=== PATIENT | female | born 1970 | race African-American/Black ===

== ENCOUNTER 2016-12-11 15:26 | Observation (INO) | payer BC ==
[~2016-12-11] VITALS: Ht 165.1 cm; Wt 82.3 kg
[~2016-12-11 15:26] MED LIST: DIVA250T4 PO; OMEP10CA3 PO; RANI15SY PO; [UNRECOGNIZED DRUG - CODE] IV
[2016-12-11] MEDS ORDERED: IV NORMAL SALINE 1000ML BAG 1,000 ML IV SCH (15:44)
[2016-12-11] MEDS ORDERED: KETOROLAC TROMETHAMINE 30 MG/ML INJ. IV ONE (15:45)
[2016-12-11] MEDS ORDERED: 0.9 % SODIUM CHLORIDE 10 ML DISP.SYRIN. IV PRN (15:45)
[2016-12-11] MEDS ORDERED: ONDANSETRON PF 4 MG/2 ML VIAL. IV ONE (15:45)
--- NOTE | 2016-12-11 15:51 | PHYS DOC ---
Past Medical History Past Medical History: Migraines Additional Past Medical Histor: POLYCYSTIC OVARIAN SYNDROME, QUESTIONABLE MS Past Surgical History: Other Additional Past Surgical Histo: in vitro, ectopic pregnancies Alcohol Use: None Drug Use: None Adult General Chief Complaint Chief Complaint: DIZZY/LIGHT HEADED HPI HPI Patient is a pleasant 46-year-old female with a remote history of ectopic with prior IVF treatments, hypertension, migraine headaches who presents with dizziness that began earlier today. She describes the dizziness as episodic lasting a few moments to 30-40 minutes worse with head movements and position changes. It caused some intense nausea without vomiting or vision changes. She denies any focal neurologic deficits weakness numbness or tingling which has increased pain in her fingertips bilaterally. She was on lisinopril until last week when he was changed to metoprolol. She has a headache on the left parietal lobe of her scalp which is typical for location but atypical in that she did not have scintillating scotomata like she normally does before headache. He denies any direct trauma to her head denies any focal vision changes, denies any problems speaking problems word finding. She denies any chest pain, shortness of breath,. She does admit she's had a URI for last several days to include nonproductive cough runny nose without ear pain to drainage hearing loss or tinnitus or other symptoms. She denies any fevers Review of Systems Review of Systems Constitutional: Denies fever or chills [] Eyes: Denies change in visual acuity, redness, or eye pain [] HENT: Denies nasal congestion or sore throat [] Respiratory: Denies cough or shortness of breath [] Cardiovascular: No additional information not addressed in HPI [] GI: Denies abdominal pain, nausea, vomiting, bloody stools or diarrhea [] : Denies dysuria or hematuria [] Musculoskeletal: Denies back pain or joint pain [] Integument: Denies rash or skin lesions [] Neurologic: Denies headache, focal weakness or sensory changes [] Endocrine: Denies polyuria or polydipsia [] Current Medications Current Medications Current Medications Medications (Trade) Dose Ordered Sig/Dustin Start Time Stop Time Status Last Admin Dose Admin Acetaminophen (Tylenol) 650 mg PRN Q4HRS PRN 12/11/16 17:45 12/12/16 17:44 UNV Aspirin (Ecotrin) 325 mg 1X ONCE 12/11/16 17:45 12/11/16 17:46 UNV Ketorolac Tromethamine (Toradol) 30 mg 1X ONCE 12/11/16 15:45 12/11/16 15:48 DC 12/11/16 15:45 30 MG Ondansetron HCl (Zofran) 4 mg PRN Q8HRS PRN 12/11/16 17:45 12/12/16 17:44 UNV Sodium Chloride (Normal Saline Flush) 10 ml QSHIFT PRN 12/11/16 15:45 Allergies Allergies Allergies Coded Allergies Type Severity Reaction Last Updated Verified shellfish derived Allergy Severe Anaphylaxis 01/26/14 No metformin Allergy Intermediate LOW BLOOD GLUCOSE 12/11/16 Yes Physical Exam Physical Exam Constitutional: Well developed, well nourished, no acute distress, non-toxic appearance. [] HENT: Normocephalic, atraumatic, bilateral external ears normal, oropharynx moist, no oral exudates, nose normal. [] Eyes: PERRLA, EOMI, conjunctiva normal, no discharge. [] Neck: Normal range of motion, no tenderness, supple, no stridor. [] Cardiovascular:Heart rate regular rhythm, no murmur [] Lungs & Thorax: Bilateral breath sounds clear to auscultation [] Abdomen: Bowel sounds normal, soft, no tenderness, no masses, no pulsatile masses. [] Skin: Warm, dry, no erythema, no rash. [] Back: No tenderness, no CVA tenderness. [] Extremities: No tenderness, no cyanosis, no clubbing, ROM intact, no edema. [] Neurologic: Alert and oriented X 3, normal motor function, normal sensory function, no focal deficits noted. Normal gait. Normal finger to nose Psychologic: Affect normal, judgement normal, mood normal. [] Current Patient Data Vital Signs Vital Signs Date Time Temp Pulse Resp B/P (MAP) Pulse Ox O2 Delivery O2 Flow Rate FiO2 12/11/16 17:13 86 16 125/66 (85) 99 Room Air 12/11/16 15:45 98.5 98.5 Lab Values Laboratory Tests Test 12/11/16 16:00 White Blood Count 7.5 x10^3/uL (4.0-11.0) Red Blood Count 4.41 x10^6/uL (3.50-5.40) Hemoglobin 13.6 g/dL (12.0-15.5) Hematocrit 39.2 % (36.0-47.0) Mean Corpuscular Volume 89 fL (79-100) Mean Corpuscular Hemoglobin 31 pg (25-35) Mean Corpuscular Hemoglobin Concent 35 g/dL (31-37) Red Cell Distribution Width 13.5 % (11.5-14.5) Platelet Count 272 x10^3/uL (140-400) Neutrophils (%) (Auto) 47 % (31-73) Lymphocytes (%) (Auto) 39 % (24-48) Monocytes (%) (Auto) 12 % (0-9) H Eosinophils (%) (Auto) 2 % (0-3) Basophils (%) (Auto) 1 % (0-3) Neutrophils # (Auto) 3.5 x10^3uL (1.8-7.7) Lymphocytes # (Auto) 2.9 x10^3/uL (1.0-4.8) Monocytes # (Auto) 0.9 x10^3/uL (0.0-1.1) Eosinophils # (Auto) 0.1 x10^3/uL (0.0-0.7) Basophils # (Auto) 0.1 x10^3/uL (0.0-0.2) Urine Collection Type Unknown Urine Color Yellow Urine Clarity Cloudy Urine pH 6.0 Urine Specific [place] >=1.030 Urine Protein 30 mg/dL (NEG-TRACE) Urine Glucose (UA) Negative mg/dL (NEG) Urine Ketones (Stick) Negative mg/dL (NEG) Urine Blood Negative (NEG) Urine Nitrite Negative (NEG) Urine Bilirubin Negative (NEG) Urine Urobilinogen Dipstick 1.0 mg/dL (0.2 mg/dL) Urine Leukocyte Esterase Negative (NEG) Urine RBC 0 /HPF (0-2) Urine WBC 11-20 /HPF (0-4) Urine Squamous Epithelial Cells Many /LPF Urine Bacteria Many /HPF (0-FEW) Urine Mucus Marked /LPF Sodium Level 138 mmol/L (136-145) Potassium Level 4.0 mmol/L (3.5-5.1) Chloride Level 100 mmol/L (98-107) Carbon Dioxide Level 26 mmol/L (21-32) Anion Gap 12 (6-14) Blood Urea Nitrogen 12 mg/dL (7-20) Creatinine 0.8 mg/dL (0.6-1.0) Estimated GFR (Cockcroft-Gault) 93.0 Glucose Level 93 mg/dL (70-99) Calcium Level 9.1 mg/dL (8.5-10.1) Magnesium Level 2.1 mg/dL (1.8-2.4) Total Bilirubin 0.2 mg/dL (0.2-1.0) Direct Bilirubin 0.1 mg/dL (0.0-0.2) Aspartate Amino Transferase (AST) 15 U/L (15-37) Alanine Aminotransferase (ALT) 22 U/L (14-59) Alkaline Phosphatase 45 U/L (46-116) L Creatine Kinase 69 U/L (26-192) Creatine Kinase MB (Mass) < 0.5 ng/mL (0.0-3.6) Creatine Kinase MB Relative Index % (0-4) Troponin I Quantitative < 0.017 ng/mL (0.000-0.055) MJ-Coz-Y-Type Natriuretic Peptide 8 pg/mL (0-124) Total Protein 8.8 g/dL (6.4-8.2) H Albumin 3.6 g/dL (3.4-5.0) Thyroid Stimulating Hormone (TSH) 1.194 uIU/mL (0.358-3.74) Laboratory Tests 12/11/16 16:00 Laboratory Tests 12/11/16 16:00 EKG EKG [] Radiology/Procedures Radiology/Procedures [] IMAGING REPORT Signed PATIENT: CHARLI BERG ACCOUNT: [id number] : 1970 LOCATION: ER AGE: 46 SEX: F EXAM STATUS: REG ER ORD. PHYSICIAN: ESME SCHAFFER MD REASON: dizziness PROCEDURE: CT HEAD WO CONTRAST CT head without contrast History: Dizziness. Comparison: None. Procedure: Axial images are obtained of the head from the skull base through the vertex without IV contrast. Findings: The ventricles and sulci are normal for the patient's age. No mass-effect, intracranial mass, midline shift, hemorrhage identified. Basilar cisterns are patent. Bone windows demonstrate no significant calvarial abnormality. The visualized paranasal sinuses appear clear. The evaluation of the melendrez-white matter differentiation is somewhat limited due to artifact. Mild bilateral pulmonary and ventricular white matter hypodensities likely chronic small vessel ischemic disease. There is a small focal hypodensity identified in the left frontal lobe just lateral to the left lateral ventricle best visualized on series 2 image #17. Impression: 1. Small focus of hypodensity identified in the left frontal lobe just lateral to the left lateral ventricle , a subacute or acute infarct/age indeterminate infarct is not completely excluded. MRI may be useful for further evaluation.. ER physician informed at time of dictation. PQRS Compliance Statement: One or more of the following individualized dose reduction techniques were utilized for this examination: 1. Automated exposure control 2. Adjustment of the mA and/or kV according to patient size 3. Use of iterative reconstruction technique DICTATED and SIGNED BY: LIZZ HUNG MD DATE: 12/11/16 5922 CC: ESME SCHAFFER MD; GUS MULLINS MD Signed PATIENT: CHARLI BERG ACCOUNT: [id number] : 1970 LOCATION: ER AGE: 46 SEX: F EXAM STATUS: REG ER ORD. PHYSICIAN: ESME SCHAFFER MD REASON: dizziness PROCEDURE: CHEST PA & LATERAL EXAM: CHEST 1 VIEW History: Dizziness COMPARISON: 09/30/2012 TECHNIQUE: Single portable radiograph of the chest FINDINGS: The cardiac silhouette is unremarkable. The lungs are clear bilaterally. The costophrenic sulci are clear and well demarcated. IMPRESSION: No radiographic evidence of an acute cardiopulmonary process. DICTATED and SIGNED BY: LIZZ HUNG MD DATE: 12/11/161 CC: ESME SCHAFFER MD; GUS MULLINS MD ~ Course & Med Decision Making Course & Med Decision Making Pertinent Labs and Imaging studies reviewed. (See chart for details) reviewed patient vital signs, laboratory work, nursing notes and reports of radiology reports. Given patient's dizziness and a small finding of subacute or acute stroke on head CT I will admit this patient for continued workup for an MRI and neurology evaluation. I'm concerned with her dizziness and change in headache pattern that this might be something more sinister Patient CT scan does demonstrate a small possible subacute or acute infarct left lobe the left ventricle. The fact the patient's neuro exam is otherwise normal this may not be a new finding. Upon repeated evaluation patient her history was provided that she did know about this particular lesion. She is supposed to follow up with her primary care physician outpatient MRIs periodically to make sure this isn't changed. Urine her changed headache pattern and persistent dizziness despite fluids and antiemetics which improved her symptoms. She is in agreement that he would like to be seen by a neurologist given her change in headache pattern. I spoke with her primary care physician Dr. Mullins. He agreed that neurology evaluation would be appropriate after MRI of the head and neck are completed. Diagnosis includes atypical migraine headache, primary intracranial tumor, renal hemorrhage, subacute acute stroke, TIA, labyrinthitis Mnire's disease, otitis media, otitis externa, heart failure, acute coronary syndrome, pulmonary embolism, dehydration, anemia, hyperthyroidism, congestive heart failure. Hospital primary impression: Likely peripheral vertigo, subacute ischemic stroke likely chronic, hypertension, nausea improved Disposition visual hospital under general medicine service consult neurology. [] Dragon Disclaimer Dragon Disclaimer This electronic medical record was generated, in whole or in part, using a voice recognition dictation system. Departure Departure Impression: Primary Impression: Dizzinesses Additional Impression: Migraine headache Disposition: ADMITTED INPATIENT Admitting Physician: Gus Mullins Condition: IMPROVED Referrals: GUS MULLINS MD (PCP) Problem Qualifiers ESME SCHAFFER MD December 11, 2016 15:51
[2016-12-11 16:21] LABS: BASO # 0.1 x10^3/uL (0.0-0.2); BASO % 1 % (0-3); EOS % 2 % (0-3); HEMATOCRIT 39.2 % (36.0-47.0); HEMOGLOBIN 13.6 g/dL (12.0-15.5); LYMPH # 2.9 x10^3/uL (1.0-4.8); LYMPH % 39 % (24-48); MEAN CORPUSCULAR HEMOGLOBIN 31 pg (25-35); MEAN CORPUSCULAR HGB CONC 35 g/dL (31-37); MEAN CORPUSCULAR VOLUME 89 fL (79-100); MONO % 12 % (0-9); NEUT % 47 % (31-73); PLATELET COUNT 272 x10^3/uL (140-400); RED BLOOD COUNT 4.41 x10^6/uL (3.50-5.40); RED CELL DISTRIBUTION WIDTH 13.5 % (11.5-14.5); WHITE BLOOD COUNT 7.5 x10^3/uL (4.0-11.0)
--- NOTE | 2016-12-11 16:21 | EKG ---
[facility] [address] [place] [address] Test Date: 2016-12-11 Test Time: 15:59:59 Pat Name: CHARLI BERG Department: Room: Gender: F [employer]: : 1970 Requested By: ESME SCHAFFER Order Number: [id number] Reading MD: Daniel Prince Measurements Intervals [place] Rate: 102 P: 44 [place]: 154 QRS: 4 QRSD: 74 T: 27 QT: 320 QTc: 421 Interpretive Statements SINUS TACHYCARDIA Electronically Signed On 12-15-2016 14:14:10 CDT by Daniel Prince
[2016-12-11 16:22] LABS: BILIRUBIN,URINE NEGATIVE (NEG); GLUCOSE,URINE NEGATIVE (NEG); NITRITE,URINE NEGATIVE (NEG); PROTEIN,URINE 30 mg/dL (NEG-TRACE)
[2016-12-11 16:28] LABS: BACTERIA,URINE MANY /HPF (0-FEW); RBC,URINE 0 /HPF (0-2); SQUAMOUS EPITHELIAL CELL,UR MANY /LPF
--- NOTE | 2016-12-11 16:28 | RAD ---
EXAM: CHEST 1 VIEW History: Dizziness COMPARISON: 09/30/2012 TECHNIQUE: Single portable radiograph of the chest FINDINGS: The cardiac silhouette is unremarkable. The lungs are clear bilaterally. The costophrenic sulci are clear and well demarcated. IMPRESSION: No radiographic evidence of an acute cardiopulmonary process.
[2016-12-11 16:36] LABS: CALCIUM 9.1 mg/dL (8.5-10.1); CREATININE 0.8 mg/dL (0.6-1.0)
[2016-12-11 16:42] LABS: ALBUMIN 3.6 g/dL (3.4-5.0); DIRECT BILIRUBIN 0.1 mg/dL (0.0-0.2); MAGNESIUM 2.1 mg/dL (1.8-2.4); TOTAL BILIRUBIN 0.2 mg/dL (0.2-1.0); TOTAL PROTEIN 8.8 g/dL (6.4-8.2)
[2016-12-11 16:51] LABS: CKMB MASS < 0.5 ng/mL (0.0-3.6); CREATINE KINASE 69 U/L (26-192)
--- NOTE | 2016-12-11 16:58 | RAD ---
CT head without contrast History: Dizziness. Comparison: None. Procedure: Axial images are obtained of the head from the skull base through the vertex without IV contrast. Findings: The ventricles and sulci are normal for the patient's age. No mass-effect, intracranial mass, midline shift, hemorrhage identified. Basilar cisterns are patent. Bone windows demonstrate no significant calvarial abnormality. The visualized paranasal sinuses appear clear. The evaluation of the melendrez-white matter differentiation is somewhat limited due to artifact. Mild bilateral pulmonary and ventricular white matter hypodensities likely chronic small vessel ischemic disease. There is a small focal hypodensity identified in the left frontal lobe just lateral to the left lateral ventricle best visualized on series 2 image #17. Impression: 1. Small focus of hypodensity identified in the left frontal lobe just lateral to the left lateral ventricle , a subacute or acute infarct/age indeterminate infarct is not completely excluded. MRI may be useful for further evaluation.. ER physician informed at time of dictation. PQRS Compliance Statement: One or more of the following individualized dose reduction techniques were utilized for this examination: 1. Automated exposure control 2. Adjustment of the mA and/or kV according to patient size 3. Use of iterative reconstruction technique
[2016-12-11] MEDS ORDERED: ASPIRIN ENTERIC COATED 325 MG TABLET.DR. PO ONE (17:45)
[2016-12-11] MEDS ORDERED: ONDANSETRON PF 4 MG/2 ML VIAL. IV PRN (17:45)
--- NOTE | 2016-12-11 18:39 | ACF ---
Admission Forms Criteria DIZZINESS Clinical Indications for Admission to Inpatient Care (Place 'X' for any and all applicable criteria): Admission is indicated for ANY ONE of the following(1)(2)(3)(4): [ ]I. Inpatient admission required rather than observation care (Also use Dizziness: Observation Care as appropriate) because of ANY ONE of the following: [ ]a) Hemodynamic instability that is severe or persistent [ ]b) Signs or symptoms that are severe or persistent (eg, vomit, orthostasis, inability to ambulate) [ ]c) Cardiac arrhythmias of immediate concern [ ]d) Severe (new) neurologic findings requiring inpatient care as indicated by ANY ONE of the following(6)(7): [ ]1) Cerebral bleeding, ischemia, or vasospasm(8)(9) [ ]2) Increased intracranial pressure or hydrocephalus(10)(11)(12) [ ]3) Papilledema [ ]4) Cerebral edema [ ]5) Mass effect on CT scan [ ]e) Continuous IV infusion of anticoagulation, platelet inhibitor, vasoactive, or antiarrhythmic medication [ ]f) Cerebral bleeding, hydrocephalus, or vasospasm monitoring(14) [ ]g) Increased intracranial pressure or cerebral edema monitoring [ ]h) Vomiting that is severe or persistent [ ]i) Other condition, treatment or monitoring requiring inpatient admission [X]II. A suspected etiology that requires admission for treatment [ ]III. Acute bacterial labyrinthitis [ ]IV. Cerebellar, brainstem, or cerebral ischemia or hemorrhage (5) Extended stay beyond goal length of stay may be needed for evaluating and treating a specific cause of dizziness, including(32) [ ]a) Head injury (Also use Traumatic Brain Injury, Nonsurgical Treatment guideline) [ ]b) New-onset vertebrobasilar vascular insufficiency [ ]c) Acute Meniere disease with intractable symptoms [ ]d) Cardiac arrhythmias or conduction defects [ ]e) Acute neurologic event causing dizziness [ ]f) Myocardial ischemia [ ]g) Acute bacterial labyrinthitis. [ ]h) Severe acute vestibular neuronitis The original [email or web address] content created by [employer] has been revised. The portions of the content which have been revised are identified through the use of italic text or in bold, and [employer] has neither reviewed nor approved the modified material. All other unmodified content is copyright [facility]. Please see references footnoted in the original [facility] edition 2016 Admission Criteria Met?: Yes ALBER PEÑALOZA December 11, 2016 18:39
[2016-12-11 19:00] VITALS: BP 138/94
[2016-12-11] MEDS ORDERED: birth control (19:37)
[2016-12-11] MEDS ORDERED: METO50TA2 PO (19:37)
[2016-12-11] MEDS ORDERED: epi pen (19:37)
[2016-12-11] MEDS ORDERED: cloNIDine HCL 0.1 MG TABLET PO SCH (20:00)
[2016-12-11] MEDS ORDERED: cloNIDine HCL 0.1 MG TABLET PO PRN (20:15)
[2016-12-11] MEDS: DIVALPROEX DELAYED RELEASE 250 MG TABLET.DR. PO SCH (20:40)
[2016-12-11 22:41] VITALS: BP 152/88
[2016-12-12 02:47] VITALS: BP 109/70
[2016-12-12] MEDS: ACETAMINOPHEN 325 MG TABLET. PO PRN ×2 (02:53→10:02)
[2016-12-12 07:00] VITALS: BP 127/82
[2016-12-12] MEDS ORDERED: ACETAMINOPHEN 325 MG TABLET. PO PRN (08:45)
--- NOTE | 2016-12-12 08:56 | PDOC ---
Provider Note Provider Note history and physical dictated # [id number] LOIS GLORIA MD December 12, 2016 08:56
[2016-12-12] MEDS ORDERED: METOPROLOL SUCC 24HR ER 50 MG TAB.ER.24H. PO SCH (09:00)
[2016-12-12] MEDS ORDERED: PANTOPRAZOLE 40 MG TABLET.DR. PO SCH (09:00)
[2016-12-12] MEDS ORDERED: METOPROLOL TART IMMED RELEASE 50 MG TABLET. PO SCH (09:00)
[2016-12-12 09:18] VITALS: BP 121/76
[2016-12-12 09:20] VITALS: BP_SYST 122; BP_SYST 131; BP_DIAS 84; BP_DIAS 90
[2016-12-12] MEDS: DIVALPROEX DELAYED RELEASE 250 MG TABLET.DR. PO SCH (09:39)
--- NOTE | 2016-12-12 10:44 | HP ---
ADMIT DATE: 12/11/2016 LOCATION: She is in room 519. HISTORY OF PRESENT ILLNESS: The patient is a 46-year-old -[place]one[place] female with a history of hypertension, migraine headaches and sinus tachycardia who was admitted to [facility] at the Emergency Room on 12/11/2016 with the onset of dizziness. She noted at work she was lightheaded when she stood up. She denied any vertigo. She apparently had some nausea, but no vomiting. She denies any fever or head trauma. Apparently, she had a left headache in the Emergency Room. She had a CAT scan of the head done in the Emergency Room, which showed a density in the left frontal lobe which was small lateral to the left ventricle. It is unclear if that was an old infarct or a new finding. She says that she did see a neurologist in the past many years ago, was told that she had an old stroke in the past. The patient is therefore admitted for further evaluation of her lightheadedness and dizziness. She denies any symptoms of dizziness this morning. She is therefore admitted for further evaluation of her abnormal CAT scan of the head and dizziness. There has been no vomiting or diarrhea. ALLERGIES AND INTOLERANCES: INCLUDE SHELLFISH AND METFORMIN. METFORMIN CAUSED LOW BLOOD SUGARS IN THE PAST. MEDICATIONS: Include Depakote 250 mg b.i.d., metoprolol succinate 50 mg every day, omeprazole 20 mg during the day, ranitidine 300 mg at bedtime, naproxen 500 mg b.i.d. p.r.n. for migraine headaches, vitamin D 1000 units every day and she is on Vyfemla 0.4/35 mcg one every day. PAST MEDICAL HISTORY: Significant for prolactinoma in 2000, polycystic ovaries, migraine headaches, irritable bowel syndrome, hyperlipidemia, gastroesophageal reflux disease, hypertension, ectopic in 1995, in-vitro fertilization in 1990, a D and C. She had a benign right breast biopsy in 2014 and her blood pressure has been elevated at times slightly. SOCIAL HISTORY: She does not drink alcohol. She is , does not smoke cigarettes. FAMILY HISTORY: Noncontributory. REVIEW OF SYSTEMS: GENERAL: There has been no fever, chills or sweats in the last 3 days. CARDIOVASCULAR: No chest pain. PULMONARY: No cough or shortness of breath. GASTROINTESTINAL: No constipation. SKIN: No rashes. NEUROLOGIC: She has dizziness, but no focal weakness. ENDOCRINE: No diabetes mellitus. The rest of systems reviewed are negative except as stated in the history of present illness. PHYSICAL EXAMINATION: VITAL SIGNS: Temperature is 97.7 degrees, apical pulse is 94 and regular, respiratory rate 19, blood pressure 127/82, oxygen saturation 97% on room air. HEENT: Eyes: Gaze is conjugate. Extraocular muscles are intact. Mouth: Tongue is midline. NECK: There is no cervical lymphadenopathy or thyroid enlargement. HEART: Reveals an S1, S2. There is no S3 or murmur. LUNGS: Clear. ABDOMEN: Soft, nontender. EXTREMITIES: Lower extremities without edema. SKIN: No rashes. NEUROLOGIC: Coherent and follows all commands. Ejmcvk-fl-[id number] testing was normal bilaterally. She has no focal weakness in the arms or legs or facial asymmetry. SKIN: No rashes. LABORATORY DATA: Review of her labs; white count 7.5, hemoglobin 13.6 with a platelet count of 372,000, 47 polys and 39 lymphocytes. Serum sodium 138, potassium 4.0, chloride 100, total CO2 was 26, BUN 12, creatinine 0.8. Liver function tests were normal. CPK was 69. Troponin levels less than 0.017. Total protein was slightly increased to 8.8 with a serum albumin that was normal at 3.6. TSH level was normal. ProBNP was normal at 8. CPK was 69. She had a chest x-ray done which showed no acute abnormality and then she had a CAT scan of the head done without contrast, which showed a small focus of hypodensity in the left frontal lobe to the left lateral ventricle and it is unclear if this is new or old and an MRI was suggested, which will be done today. She had an electrocardiogram showing normal sinus rhythm with a left atrial abnormality. ASSESSMENT: 1. Dizziness. I will certainly also check for orthostatic hypotension. 2. An abnormal CAT scan of the head. It sounds like it might be an old left frontal cerebrovascular accident. Based on her history and the findings, we will get the MRI of the brain to see. 3. An old cerebrovascular accident by history. 4. Hypertension. 5. Migraine headaches. PLAN: At this time is to check for orthostatic blood pressures. We will obtain MRI of the brain, consult Dr. Patel for Neurology. If the MRI of the brain is negative and after Dr. Patel's consultation, will consider dismissal later today. Continue with her home medications and as mentioned, we will check for orthostatic hypotension. LOIS GLORIA MD DR: BRISSA/zuly JOB#: [id number] / [id number]
[2016-12-12 11:00] VITALS: BP 125/78
--- NOTE | 2016-12-12 11:06 | PDOC2 ---
NEUROLOGY CONSULT Date of Admission Date of Admission DATE: 12/12/16 TIME: 11:00 Reason for Consult Reason for Consult: Headaches, dizziness, abnormal CT scan Referring Physician Referring Physician: Dr. Mullins Source Source: Caregiver, Chart review, Patient History of Present Illness History of Present Illness The patient is a 46-year-old right-handed female with a long history of migraine headaches who recently switched from verapamil to metoprolol for control of blood pressure. She became lightheaded yesterday and also had a headache. She came to the emergency department where she had an abnormal head CT as reviewed below. In the past she saw doctors Rose Mary and Sami at [facility] neurology. Her were some concerns that the patient had multiple sclerosis but MR findings were eventually ascribed to her migraines and she was also told that the MRI did show an old stroke. She has had no clinical symptoms of stroke in her last time denies any seizures or head injuries. She has 2 or 3 headaches a week. 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 Current Medications Current Medications Current Medications Sodium Chloride 1,000 ml @ 1,000 mls/hr Q1H IV Last administered on 12/11/16 15:44; Start 12/11/16 at 15:44; Stop 12/11/16 at 16:43; Status DC Sodium Chloride (Normal Saline Flush) 10 ml QSHIFT PRN IV AFTER MEDS AND BLOOD DRAWS; Start 12/11/16 at 15:45 Ondansetron HCl (Zofran) 4 mg 1X ONCE IV Last administered on 12/11/16 15:45 ; Start 12/11/16 at 15:45; Stop 12/11/16 at 15:48; Status DC Ketorolac Tromethamine (Toradol) 30 mg 1X ONCE IV Last administered on 15:45; Start 12/11/16 at 15:45; Stop 12/11/16 at 15:48; Status DC Ondansetron HCl (Zofran) 4 mg PRN Q8HRS PRN IV NAUSEA/VOMITING; Start 12/11/16 at 17:45; Stop 12/12/16 at 17:44 Acetaminophen (Tylenol) 650 mg PRN Q4HRS PRN PO FEVER Last administered on 12/12 10:02; Start 12/11/16 at 17:45; Stop 12/12/16 at 17:44 Aspirin (Ecotrin) 325 mg 1X ONCE PO ; Start 12/11/16 at 17:45; Stop 12/11/16 at 17:51; Status DC Divalproex Sodium (Depakote) 250 mg BID PO Last administered on 12/12/16 09:39 ; Start 12/11/16 at 21:00 Metoprolol Tartrate (Lopressor) 50 mg DAILY PO ; Start 12/12/16 at 09:00; Stop 12/12/16 at 09:00; Status DC Clonidine HCl (Catapres) 0.1 mg Q6HRS PO ; Start 12/11/16 at 20:00; Stop at 20:12; Status DC Clonidine HCl (Catapres) 0.1 mg PRN Q6HRS PRN PO ELEVATED BP, SEE COMMENTS; Start 12/11/16 at 20:15 Pantoprazole Sodium (Protonix) 40 mg DAILYAC PO Last administered on 12/12/16 09:56; Start 12/12/16 at 09:00 Famotidine (Pepcid) 40 mg QHS PO ; Start 12/12/16 at 21:00 Metoprolol Succinate (Toprol Xl) 50 mg DAILY PO Last administered on 12/12/16 09:56; Start 12/12/16 at 09:00 Acetaminophen (Tylenol) 650 mg PRN Q6HRS PRN PO MILD PAIN / TEMP; Start at 08:45 Active Scripts Active Reported [epi pen] Metoprolol Tartrate 50 Mg Tablet 1 Tab PO DAILY [ control] Depakote (Divalproex Sodium) 250 Mg Tablet.dr 250 Mg PO BID Allergies Allergies: Coded Allergies: shellfish derived (Verified Allergy, Severe, Anaphylaxis, 12/12/16) metformin (Verified Allergy, Intermediate, LOW BLOOD GLUCOSE, 12/11/16) ROS Review of System Patient denies fevers, chills, weight loss, dyspnea, angina, abdominal pain, change in bowels, or dysuria. 14 point review of systems is negative. Physical Exam Physical Examination PHYSICAL EXAMINATION: Vital signs: see above. General appearance is normal and in no acute distress. HEENT: Normocephalic and nontraumatic. Eyes, nose, ears, and throat are unremarkable. Neck is supple. No lymphadenopathy. No bruits are heard over the carotid artery. No crepitus. NEUROLOGICAL EXAMINATION: Mental Status Examination: Alert. Oriented to time, place, and person. Answers questions and follows commends. Pupils are equal round and reactive to light and accommodation. Funduscopic exam: No papilledema. Extraocular movements are intact. Visual field exam shows no defect on the direct confrontation. No motor or sensory deficits on the facial exam. Uvula in the midline and the soft palate elevated symmetrically. No deviation of the tongue to any direction. Gross hearing is normal. Shoulder shrug normal. Muscle tone is normal. Muscle strength is 5. Deep tendon reflexes are 2+ all around. Plantar reflex is with flexion response bilaterally. [id number] test performance is accurate. Tandem walk test is accurate. Alternative movements are accurate. Romberg test is negative. Gait is normal. Sensory exam shows no deficits. No cerebellar signs are elicited. Vitals VITALS Vital Signs Date Time Temp Pulse Resp B/P (MAP) Pulse Ox O2 Delivery O2 Flow Rate FiO2 12/12/16 09:56 106 127/83 12/12/16 09:20 97.7 19 100 Room Air 97.7 Labs Labs Laboratory Tests Test 12/11/16 15:20 12/11/16 16:00 Bedside Urine HCG, Qualitative Hcg negative (Negative) White Blood Count 7.5 x10^3/uL (4.0-11.0) Red Blood Count 4.41 x10^6/uL (3.50-5.40) Hemoglobin 13.6 g/dL (12.0-15.5) Hematocrit 39.2 % (36.0-47.0) Mean Corpuscular Volume 89 fL (79-100) Mean Corpuscular Hemoglobin 31 pg (25-35) Mean Corpuscular Hemoglobin Concent 35 g/dL (31-37) Red Cell Distribution Width 13.5 % (11.5-14.5) Platelet Count 272 x10^3/uL (140-400) Neutrophils (%) (Auto) 47 % (31-73) Lymphocytes (%) (Auto) 39 % (24-48) Monocytes (%) (Auto) 12 % (0-9) Eosinophils (%) (Auto) 2 % (0-3) Basophils (%) (Auto) 1 % (0-3) Neutrophils # (Auto) 3.5 x10^3uL (1.8-7.7) Lymphocytes # (Auto) 2.9 x10^3/uL (1.0-4.8) Monocytes # (Auto) 0.9 x10^3/uL (0.0-1.1) Eosinophils # (Auto) 0.1 x10^3/uL (0.0-0.7) Basophils # (Auto) 0.1 x10^3/uL (0.0-0.2) Urine Collection Type Unknown Urine Color Yellow Urine Clarity Cloudy Urine pH 6.0 Urine Specific Penfield >=1.030 Urine Protein 30 mg/dL (NEG-TRACE) Urine Glucose (UA) Negative mg/dL (NEG) Urine Ketones (Stick) Negative mg/dL (NEG) Urine Blood Negative (NEG) Urine Nitrite Negative (NEG) Urine Bilirubin Negative (NEG) Urine Urobilinogen Dipstick 1.0 mg/dL (0.2 mg/dL) Urine Leukocyte Esterase Negative (NEG) Urine RBC 0 /HPF (0-2) Urine WBC 11-20 /HPF (0-4) Urine Squamous Epithelial Cells Many /LPF Urine Bacteria Many /HPF (0-FEW) Urine Mucus Marked /LPF Sodium Level 138 mmol/L (136-145) Potassium Level 4.0 mmol/L (3.5-5.1) Chloride Level 100 mmol/L (98-107) Carbon Dioxide Level 26 mmol/L (21-32) Anion Gap 12 (6-14) Blood Urea Nitrogen 12 mg/dL (7-20) Creatinine 0.8 mg/dL (0.6-1.0) Estimated GFR (Cockcroft-Gault) 93.0 Glucose Level 93 mg/dL (70-99) Calcium Level 9.1 mg/dL (8.5-10.1) Magnesium Level 2.1 mg/dL (1.8-2.4) Total Bilirubin 0.2 mg/dL (0.2-1.0) Direct Bilirubin 0.1 mg/dL (0.0-0.2) Aspartate Amino Transf (AST/SGOT) 15 U/L (15-37) Alanine Aminotransferase (ALT/SGPT) 22 U/L (14-59) Alkaline Phosphatase 45 U/L (46-116) Creatine Kinase 69 U/L (26-192) Creatine Kinase MB (Mass) < 0.5 ng/mL (0.0-3.6) Creatine Kinase MB Relative Index % (0-4) Troponin I Quantitative < 0.017 ng/mL (0.000-0.055) NO-Cct-E-Type Natriuretic Peptide 8 pg/mL (0-124) Total Protein 8.8 g/dL (6.4-8.2) Albumin 3.6 g/dL (3.4-5.0) Thyroid Stimulating Hormone (TSH) 1.194 uIU/mL (0.358-3.74) Laboratory Tests Test 12/11/16 15:20 12/11/16 16:00 Bedside Urine HCG, Qualitative Hcg negative (Negative) White Blood Count 7.5 x10^3/uL (4.0-11.0) Red Blood Count 4.41 x10^6/uL (3.50-5.40) Hemoglobin 13.6 g/dL (12.0-15.5) Hematocrit 39.2 % (36.0-47.0) Mean Corpuscular Volume 89 fL (79-100) Mean Corpuscular Hemoglobin 31 pg (25-35) Mean Corpuscular Hemoglobin Concent 35 g/dL (31-37) Red Cell Distribution Width 13.5 % (11.5-14.5) Platelet Count 272 x10^3/uL (140-400) Neutrophils (%) (Auto) 47 % (31-73) Lymphocytes (%) (Auto) 39 % (24-48) Monocytes (%) (Auto) 12 % (0-9) Eosinophils (%) (Auto) 2 % (0-3) Basophils (%) (Auto) 1 % (0-3) Neutrophils # (Auto) 3.5 x10^3uL (1.8-7.7) Lymphocytes # (Auto) 2.9 x10^3/uL (1.0-4.8) Monocytes # (Auto) 0.9 x10^3/uL (0.0-1.1) Eosinophils # (Auto) 0.1 x10^3/uL (0.0-0.7) Basophils # (Auto) 0.1 x10^3/uL (0.0-0.2) Urine Collection Type Unknown Urine Color Yellow Urine Clarity Cloudy Urine pH 6.0 Urine Specific Penfield >=1.030 Urine Protein 30 mg/dL (NEG-TRACE) Urine Glucose (UA) Negative mg/dL (NEG) Urine Ketones (Stick) Negative mg/dL (NEG) Urine Blood Negative (NEG) Urine Nitrite Negative (NEG) Urine Bilirubin Negative (NEG) Urine Urobilinogen Dipstick 1.0 mg/dL (0.2 mg/dL) Urine Leukocyte Esterase Negative (NEG) Urine RBC 0 /HPF (0-2) Urine WBC 11-20 /HPF (0-4) Urine Squamous Epithelial Cells Many /LPF Urine Bacteria Many /HPF (0-FEW) Urine Mucus Marked /LPF Sodium Level 138 mmol/L (136-145) Potassium Level 4.0 mmol/L (3.5-5.1) Chloride Level 100 mmol/L (98-107) Carbon Dioxide Level 26 mmol/L (21-32) Anion Gap 12 (6-14) Blood Urea Nitrogen 12 mg/dL (7-20) Creatinine 0.8 mg/dL (0.6-1.0) Estimated GFR (Cockcroft-Gault) 93.0 Glucose Level 93 mg/dL (70-99) Calcium Level 9.1 mg/dL (8.5-10.1) Magnesium Level 2.1 mg/dL (1.8-2.4) Total Bilirubin 0.2 mg/dL (0.2-1.0) Direct Bilirubin 0.1 mg/dL (0.0-0.2) Aspartate Amino Transf (AST/SGOT) 15 U/L (15-37) Alanine Aminotransferase (ALT/SGPT) 22 U/L (14-59) Alkaline Phosphatase 45 U/L (46-116) Creatine Kinase 69 U/L (26-192) Creatine Kinase MB (Mass) < 0.5 ng/mL (0.0-3.6) Creatine Kinase MB Relative Index % (0-4) Troponin I Quantitative < 0.017 ng/mL (0.000-0.055) EB-Lxk-E-Type Natriuretic Peptide 8 pg/mL (0-124) Total Protein 8.8 g/dL (6.4-8.2) Albumin 3.6 g/dL (3.4-5.0) Thyroid Stimulating Hormone (TSH) 1.194 uIU/mL (0.358-3.74) Images Images CT head: Findings: The ventricles and sulci are normal for the patient's age. No mass-effect, intracranial mass, midline shift, hemorrhage identified. Basilar cisterns are patent. Bone windows demonstrate no significant calvarial abnormality. The visualized paranasal sinuses appear clear. The evaluation of the melendrez-white matter differentiation is somewhat limited due to artifact. Mild bilateral pulmonary and ventricular white matter hypodensities likely chronic small vessel ischemic disease. There is a small focal hypodensity identified in the left frontal lobe just lateral to the left lateral ventricle best visualized on series 2 image #17. Impression: 1. Small focus of hypodensity identified in the left frontal lobe just lateral to the left lateral ventricle , a subacute or acute infarct/age indeterminate infarct is not completely excluded. MRI may be useful for further evaluation.. Assessment/Plan Assessment/Plan Impression: Migraine headaches Dizziness, may have been due to blood pressure medication or blood pressure itself, resolved No sign of acute or remote stroke Recommendation: Agree with MRI of the brain Discharge if MRI negative Follow-up with [facility] neurology as needed or she can come see me if she wishes Thank you for letting me help with the patient's care. NOEMI VASQUEZ MD December 12, 2016 11:06
[2016-12-12] MEDS ORDERED: GADOBUTROL 10 MMOL/10 ML VIAL IV ONE (11:45)
--- NOTE | 2016-12-12 12:44 | RAD ---
PROCEDURE MRI of the brain without and with contrast 12/12/2016 HISTORY Migraine headaches with dizziness. TECHNIQUE Unenhanced T1 weighted sagittal and axial and FLAIR, gradient echo, T2 weighted and diffusion weighted axial images of the brain were obtained. After the intravenous administration of 8 cc of Gadavist enhanced T1 weighted sagittal, axial and coronal images of the brain were obtained. FINDINGS Comparison is made to the patient's CT scan of dated 12/11/2016. The ventricles and sulci are within normal limits in size and configuration. Patchy, confluent and several focal scattered areas of abnormally increased signal intensity are seen involving the periventricular, deep and subcortical white matter of both cerebral hemispheres on the FLAIR and T2 weighted images. They measure 2 millimeters to 1.8 centimeters in greatest diameter. The largest lesion is located within the white matter of the left frontotemporal lobe. Their MRI appearance is nonspecific. They could be seen in the setting of a demyelinating disorder with multiple sclerosis being the most likely etiology. Alternatively they could represent areas of small vessel ischemic disease. No area of abnormal contrast enhancement is noted. No area of restricted diffusion is seen to suggest evidence of acute ischemia/infarction. No extra-axial fluid collection is seen. Mild mucosal thickening is seen involving scattered ethmoid air cells bilaterally. Normal flow voids are seen within the major vascular structures surrounding the brain parenchyma. IMPRESSION Areas of abnormally increased signal intensity are seen within the white matter of both cerebral hemispheres have a nonspecific MRI appearance as outlined above. No acute parenchymal abnormality is seen. No abnormal contrast enhancement is noted. Electronically signed by: Prosper Ragsdale MD (December 12, 2016 12:43:13)
[2016-12-12 15:00] VITALS: BP 128/84
[2016-12-12] MEDS ORDERED: FAMOTIDINE 20 MG TABLET. PO SCH (21:00)
--- NOTE | 2016-12-13 10:15 | PDOC ---
Provider Note Provider Note discharge summary dictated # [id number] LOIS GLORIA MD December 13, 2016 10:15
--- NOTE | 2016-12-13 10:58 | DS ---
DATE OF DISCHARGE: 12/12/2016 CONSULTANTS: Dr. Gomez. FINAL DIAGNOSES: 1. Dizziness of undetermined etiology. 2. Migraine headaches. 3. Abnormal CAT scan of the head showing a possible old cerebrovascular accident in the past. 4. Hypertension. HOSPITAL COURSE: The patient is a 46-year-old -[place] female with history of hypertension, migraine headaches, and sinus tachycardia, admitted to [facility] at the Emergency Room on 12/11/2016 with the onset of dizziness and a headache. She noted she had some lightheadedness, but denied any vertigo. There has been no headache, fever, or head trauma. The patient states that she was told in the past by her neurologists that she had an old stroke in the past. There was a question of multiple sclerosis in the past, but apparently this did not arnold out and it was thought that the abnormalities seen on her imaging studies of the brain in the past were most likely secondary to migraine headaches apparently. In any case, the patient had a CAT scan of head done, which showed a possible old left frontal infarct and the patient was seen by Dr. Gomez in consultation. An MRI of the brain did not show any acute abnormality. It did show increased signal intensity in the white matter of both cerebral hemispheres that were nonspecific. It is possible it could be consistent with a demyelinating disease. It is possible it could be secondary to small vessel disease also. No acute stroke was seen. Dr. Gomez thought that the dizziness could be secondary to her blood pressure or antihypertensive medication related to dizziness. The dizziness did resolve and felt that she could be dismissed. The patient did not have any dizziness, nausea, vomiting, or headache, when I saw her yesterday morning and she will be dismissed to home on Depakote 250 mg b.i.d.; metoprolol succinate 50 mg every day; omeprazole 20 mg every day; ranitidine 300 mg at bedtime; naproxen 500 mg b.i.d. p.r.n. for migraine headaches; vitamin D and also dismissed on vitamin D 1000 units every day and Vyfemla 0.4/35 mcg one tablet daily. She was told to follow up with Dr. Mullins in the office next week. She will also follow up with her neurologist. LOIS MULLINS MD DR: Aidee JOB#: [id number] / [id number]
== END 2016-12-12 17:00 | disposition home or self-care (01) ==
LOC: ER 15:26 → 5 NORTH 17:45
PROVIDERS: ADMIT Internal Medicine; ATTEND Internal Medicine
DX: G43.909 Migraine, unspecified, not intractable, without status migrainosus (principal); R42 Dizziness and giddiness; I10 Essential (primary) hypertension; E28.2 Polycystic ovarian syndrome; E78.5 Hyperlipidemia, unspecified; K21.9 Gastro-esophageal reflux disease without esophagitis; R11.0 Nausea; Z86.73 Personal history of transient ischemic attack (TIA), and cerebral infarction without residual deficits
CPT/HCPCS: 36415; 70450; 70553; 71020; 80048; 80076; 81001; 81025; 82553; 83735; 83880; 84443; 84484; 85027; 87086; 93005; 96361; 96374; 96375; 99285; A9585; G0378; J1885; J2405; J7030; G0379